=== PATIENT | female | born 1990 | race Caucasian/White ===

== ENCOUNTER 2017-02-13 22:01 | Emergency (ER) | payer OTHER | END 2017-02-13 22:53 | disposition home or self-care (01) | LOC: FER 22:01 | DX: B34.9 Viral infection, unspecified (principal); R12 Heartburn; F17.210 Nicotine dependence, cigarettes, uncomplicated ==

== ENCOUNTER 2017-03-30 14:45 | Emergency (ER) | payer OTHER | END 2017-03-30 16:06 | disposition home or self-care (01) | LOC: FER 14:45 | DX: S93.602A Unspecified sprain of left foot, initial encounter (principal); S93.402A Sprain of unspecified ligament of left ankle, initial encounter; F17.200 Nicotine dependence, unspecified, uncomplicated; X50.0XXA Overexertion from strenuous movement or load, initial encounter; Y92.830 Public park as the place of occurrence of the external cause | CPT/HCPCS: 73610; 73630; 99283 ==